=== PATIENT | female | born 1965 | race Caucasian/White ===

== ENCOUNTER → 2019-01-06 | Outpatient (CLI) | payer OTHER ==
[~2019-01-06] MED LIST: AMBIEN 10MG10 MG PO; B-121500 MCG PO; CIPRO 500MG TA500 MG PO; COLACE 100100 MG/CAP PO; CONCERTA27 MG PO; FIORICET 325 MG1 TA1 PO; KLONOPIN 0.5MG0.5 MG PO; NEXIUM 40MG40 MG PO; PERCOCET 325 MG1 TA2 PO; POLYETHYLENE GL; PROZAC 20MG20 MG PO; SEROQUEL 2525 MG/TAB PO; VIIBRYD20 MG PO; VITAMIN D32000 I1 PO; ZOFRAN 4MG T4 MG/TAB PO; ZOVIRAX 200MG200 MG PO
== END ==
LOC: BHSO 13:52
DX: F31.4 Bipolar disorder, current episode depressed, severe, without psychotic features (principal)

== ENCOUNTER → 2019-02-10 | Outpatient (CLI) | payer OTHER | LOC: BHSO 15:53 | DX: F31.81 Bipolar II disorder (principal) | CPT/HCPCS: G0463 ==

== ENCOUNTER → 2019-04-03 | Outpatient (CLI) | payer OTHER | LOC: BHSO 08:42 | DX: F31.81 Bipolar II disorder (principal) | CPT/HCPCS: G0463 ==

== ENCOUNTER → 2019-07-01 | Outpatient (CLI) | payer OTHER | LOC: BHSO 15:57 | DX: F31.81 Bipolar II disorder (principal) | CPT/HCPCS: G0463 ==

== ENCOUNTER → 2019-11-21 | Outpatient (CLI) | payer OTHER | LOC: BHSO 15:32 | DX: F43.10 Post-traumatic stress disorder, unspecified (principal) | CPT/HCPCS: G0463 ==

== ENCOUNTER → 2020-03-05 | Outpatient (CLI) | payer OTHER | LOC: COL.RAD 09:16 | DX: K82.8 Other specified diseases of gallbladder (principal); K52.9 Noninfective gastroenteritis and colitis, unspecified; R19.7 Diarrhea, unspecified | CPT/HCPCS: A9537; J2805 ==

== ENCOUNTER 2020-03-28 18:06 | Observation (INO) | payer OTHER ==
[~2020-03-28] VITALS: Ht 160 cm; Wt 91.4 kg
[2020-03-28 18:14] VITALS: BP 116/63; PULSE 67; TEMP 97.4
[2020-03-28] MEDS ORDERED: ATARAX 10MG10 MG/TAB PO (18:37)
[2020-03-28] MEDS ORDERED: TOPAMAX50 MG PO (18:40)
[2020-03-28] MEDS ORDERED: CYMBALTA 30MG30 MG PO (18:40)
[2020-03-28] MEDS ORDERED: MACRODANTIN100 PO (18:41)
[2020-03-28] MEDS ORDERED: ALDACTONE 25MG25 M1 PO (19:00)
[2020-03-28] MEDS ORDERED: LAMICTAL200 MG PO (19:01)
[2020-03-28] MEDS ORDERED: VALTREX1 GM PO (19:02)
[2020-03-28] MEDS ORDERED: VITAMIN D31000 I1 PO (19:03)
[2020-03-28] MEDS ORDERED: VITAMIN C500 MG PO (19:03)
[2020-03-28] MEDS ORDERED: DULCOLAX TAB5 MG PO (19:05)
--- NOTE | 2020-03-28 19:20 | NUR ---
Assessment complete. Resting in bed, watching television. Ate 75% of full liquid diet. Denies N/V at this time. Reports pain within her tolerable limit.
[2020-03-28 20:02] VITALS: BP 103/59; PULSE 66; TEMP 97.8
[2020-03-29] VITALS (11 sets, daily range): BP systolic 96–154; BP diastolic 49–75; PULSE 55–61; TEMP 97.3–98.1
--- NOTE | 2020-03-29 09:57 | NUR ---
Patient alert and oriented, answers questions appropriately. See assessment. Abdomen soft, non tender, non distended. Bowel sounds hyperactive x4 quads. +Flatus. C/o pain to RUQ, No other c/o at this time..
--- NOTE | 2020-03-29 10:55 | NUR ---
SW met with the patient to discuss discharge plan. The patient lives in [place] with her , Valeriy (ph#[phone]). She reports independence with ADLs and does not have any DME. The patient's PCP is Dr. Marisela Murillo at [facility] and she also receives her medications there. She reports no difficulties obtaining her meds. The patient does not have advanced directives and she was not interested in completing them at this time. The patient plans to return home with her upon discharge. No additional needs at this time.
--- NOTE | 2020-03-29 12:22 | NUR ---
Surgical consent signed.
--- NOTE | 2020-03-29 13:13 | NUR ---
Patient to surgery with surgical staff at this time. Report called to UTILITY WORKER.
[2020-03-29] MEDS ORDERED: NORCO 325 MG-51 TAB PO (14:50)
--- NOTE | 2020-03-29 16:00 | NUR ---
Patient returns from surgery. Assessment unchanged except for abdomen with lap sites x5, edges well approximated, no redness or drainage noted. Bowel sounds hypoactive x4 quads. Post op checks initiated. Post op exercises reviewed.
--- NOTE | 2020-03-29 19:00 | NUR ---
Pt. sitting up in bed at this time. Pt. is A&OX3. Pt. has met discharge criteria. Gave pt. discharge paperwork and reviewed discharge. Pt. voices understanding. Pt. given script and information on follow up appointment. Pt. voices understanding. INT discontinued from rt. wrist. Pt. escorted out by LARRY.
== END 2020-03-29 19:00 | disposition home or self-care (01) ==
LOC: SURG 18:06
PROVIDERS: ADMIT Surgery
DX: K80.11 Calculus of gallbladder with chronic cholecystitis with obstruction (principal); K52.9 Noninfective gastroenteritis and colitis, unspecified; E66.9 Obesity, unspecified; K21.9 Gastro-esophageal reflux disease without esophagitis; K44.9 Diaphragmatic hernia without obstruction or gangrene; G43.909 Migraine, unspecified, not intractable, without status migrainosus; G47.33 Obstructive sleep apnea (adult) (pediatric); F41.9 Anxiety disorder, unspecified; F42.9 Obsessive-compulsive disorder, unspecified; F32.9 Major depressive disorder, single episode, unspecified; Z98.84 Bariatric surgery status; Z88.2 Allergy status to sulfonamides; Z88.8 Allergy status to other drugs, medicaments and biological substances; Z88.1 Allergy status to other antibiotic agents; Z91.040 Latex allergy status; Z79.899 Other long term (current) drug therapy
CPT/HCPCS: G0378; J1170; J2405; J2550; J2704; J3010; J7042

== ENCOUNTER → 2020-04-21 | Outpatient (CLI) | payer OTHER ==
[~2020-04-21] MED LIST changes: +ALDACTONE 25MG25 M1 PO; +ATARAX 10MG10 MG/TAB PO; +CYMBALTA 30MG30 MG PO; +DULCOLAX TAB5 MG PO; +LAMICTAL200 MG PO; +MACRODANTIN100 PO; +NORCO 325 MG-51 TAB PO; +TOPAMAX50 MG PO; +VALTREX1 GM PO; +VITAMIN C500 MG PO; +VITAMIN D31000 I1 PO
== END ==
LOC: BHSO 13:36
DX: F31.81 Bipolar II disorder (principal)
CPT/HCPCS: G0463

== ENCOUNTER → 2020-08-10 | Outpatient (CLI) | payer OTHER | LOC: BHSO 15:19 | DX: F43.10 Post-traumatic stress disorder, unspecified (principal) | CPT/HCPCS: G0463 ==

== ENCOUNTER 2023-10-12 05:11 | Day surgery (SDC) | payer OTHER ==
[~2023-10-12] VITALS: Ht 160 cm; Wt 101.4 kg
[2023-10-12 06:22] VITALS: BP 138/85; PULSE 68; TEMP 97.5
[2023-10-12] MEDS ORDERED: NEURONTIN300 MG/CAP PO (06:41)
[2023-10-12] MEDS ORDERED: ELMIRON 10100 MG/CA1 (06:41)
[2023-10-12] MEDS ORDERED: PHENTERMINE15 MG PO (06:41)
[2023-10-12] MEDS ORDERED: DESYREL 50MG50 MG PO (06:42)
[2023-10-12] MEDS ORDERED: ZOFRAN8 MG PO (06:43)
[2023-10-12 07:35] VITALS: BP 131/64; PULSE 66; TEMP 97.5
[2023-10-12 07:50] VITALS: BP 103/68; PULSE 64
[2023-10-12 08:00] VITALS: BP 123/81; PULSE 60
--- NOTE | 2023-10-12 08:05 | NUR ---
0735 RETURNS TO ROOM 1 PER CART. AWAKE, ALERT. RESP UNLABORED. AMBULATES TO RECLINER WITH STANDBY ASSIST. VITAL SIGN S OBTAINED. DENIES NAUSEA, ABD PAIN OR DYSPHAGIA. CALL LIGHT AT SIDE. IN ROOM 0743 DISCHARE INSTRUCTIONS REVIEWED. PATIENT VERBALIZES UNDERSTANDING. COPY PROVIDED IN DISCHARGE FOLDER 0755 TOLERATES PO WATER WITH OUT NAUSEA. SWALLOWS WITHOUT DIFFICULTY. 0800 DR. GRIJALVA HERE TO VISIT WITH PATIENT 0802 DRESSES SELF
== END 2023-10-12 08:08 | disposition home or self-care (01) ==
LOC: SDCO 05:11
DX: K59.00 Constipation, unspecified (principal); K21.00 Gastro-esophageal reflux disease with esophagitis, without bleeding; K31.89 Other diseases of stomach and duodenum; G47.33 Obstructive sleep apnea (adult) (pediatric); Z98.84 Bariatric surgery status
CPT/HCPCS: J2704; J7120

== ENCOUNTER 2024-04-25 07:41 | Day surgery (SDC) | payer OTHER ==
[~2024-04-25] VITALS: Ht 160 cm; Wt 99.2 kg
[~2024-04-25 07:41] MED LIST changes: +DESYREL 100MG100 MG PO; +ELMIRON 10100 MG/CA1; +LR 1,000 ML IV SCH; +NEURONTIN300 MG/CAP PO; +PHENTERMINE15 MG PO; +ZOFRAN8 MG PO
[2024-04-25] MEDS ORDERED: CYANOCOBAL1000 MCG/1 IM (08:57)
[2024-04-25] MEDS ORDERED: CYMBALTA 60MG60 MG PO (09:00)
[2024-04-25] MEDS ORDERED: GLUCOPHAGE500 MG/TAB PO (09:01)
--- NOTE | 2024-04-25 09:04 | NUR ---
Pt arrived with mother and granddaughter for procedure, VSS and WNL, RR even and unlabored, S1/S1 present, reviewed meds/pharm/allergies/history; consents reviewed and signed, no questions/concerns; 20G IV to RH on 2nd attempt, LR hanging to keep vein open.
[2024-04-25] MEDS ORDERED: fentaNYL 50 MCG/ML 2 ML VIAL ONE ×2 (09:08→11:24)
[2024-04-25] MEDS ORDERED: Rocuronium 50 MG/5 ML Multi-Dose VIAL ONE ×2 (09:09→11:09)
[2024-04-25 09:10] VITALS: BP 134/91; PULSE 65; TEMP 97.8
[2024-04-25] MEDS ORDERED: Glycopyrrolate 0.2 MG/ML 1 ML VIAL ONE (09:10)
[2024-04-25] MEDS ORDERED: Ketorolac 30 MG/ML VIAL ONE (09:10)
[2024-04-25] MEDS ORDERED: dexAMETHasone 10 MG/ML VIAL ONE ×2 (09:10→09:12)
[2024-04-25] MEDS ORDERED: NS 10 ML IV ONE (09:10)
[2024-04-25] MEDS ORDERED: Ondansetron 4 MG/2 ML VIAL ONE (09:10)
[2024-04-25] MEDS ORDERED: Lidocaine PF 2% (20 MG/ML) 5 ML VIAL ONE (09:11)
[2024-04-25] MEDS ORDERED: NS 30 ML IV ONE (09:11)
[2024-04-25] MEDS ORDERED: Morphine 2 MG/1 ML VIAL [PACU/SDC ONLY] IV PRN (10:45)
[2024-04-25] MEDS ORDERED: Ondansetron 4 MG/2 ML VIAL IV PRN ×2 (10:45→12:00)
[2024-04-25] MEDS ORDERED: droPERidol 2.5 MG/ML 2 ML VIAL IV PRN (10:45)
[2024-04-25] MEDS ORDERED: fentaNYL 50 MCG/ML 1 ML SYRINGE/VIAL [PACU/SDC ONLY] IV PRN (10:45)
[2024-04-25] MEDS ORDERED: HYDROmorphone 1 MG/1 ML SYRINGE [PACU/SDC ONLY] IV PRN (10:45)
[2024-04-25] MEDS ORDERED: hydrALAZINE 20 MG/ML 1 ML VIAL IV PRN (10:45)
[2024-04-25] MEDS ORDERED: Ibuprofen 600 MG TAB PO PRN (12:00)
[2024-04-25] MEDS ORDERED: Acetaminophen 325 MG TAB PO PRN (12:00)
[2024-04-25 12:26] VITALS: TEMP 97.2
[2024-04-25 13:10] VITALS: BP 135/66; PULSE 56
--- NOTE | 2024-04-25 13:10 | NUR ---
PATIENT RETURNS TO ROOM 2 PER CART ACCOMPANIED BY JUSTICE CHAMBERS AND RUDDY RN. AROUSES TO VERBAL STIMULI. IVF INFUSING #20G RH. ABDOMINAL BINDER IN PLACE. NO DRAINAGE NOTED FROM INCISIONAL SITES 4 ON ABDOMEN. ON OXYGEN AT 2L PER NC. CALL LIGHT IN REACH AND FAMILY IN ROOM. SIDERAILS UP X2.
[2024-04-25 13:25] VITALS: BP 138/56; PULSE 58
--- NOTE | 2024-04-25 13:25 | NUR ---
CONTINUES TO REST WITHOUT COMPLAINTS OF PAIN OR NAUSEA. IVF INFUSING AND FAMILY REMAINS AT BEDSIDE.
[2024-04-25 13:40] VITALS: BP 134/59; PULSE 61
--- NOTE | 2024-04-25 13:40 | NUR ---
CONTINUES TO REST. MORE AWAKE AND TALKING WITH FAMILY.
--- NOTE | 2024-04-25 13:45 | NUR ---
IV TO INT AND AMBULATES TO THE BATHROOM. GAIT STEADY. REPORT GIVEN TO HEATHER CHAMBERS.
--- NOTE | 2024-04-25 16:39 | NUR ---
1310- PT RETURNS FROM PACU VIA CART TO [facility]. MONITORS ON AND ALARMS SET. CALL LIGHT WITHIN REACH. REPORT RECEIVED FROM REYES FOX. PT RESTING IN BED. 1320- PT FEELING VERY NAUSEAOUS. ALREADY MAXED OUT ON NAUSEA MEDICATION. PLACED COLD RAG ON HEAD, FAN GIVEN, AND HAD HER EAT ICE CHIPS. 1400- PT STILL FEELING NAUSEAOUS. HAVING PT RESTING IN BED. 1430- PT AMBULATED TO BATHROOM. STILL FEELING NAUSEAOUS. 1500- PT RESTING IN BED. TRIED EATING CRACKERS. 1600- DISCHARGE INSTRUCTIONS GIVEN TO PT. ALL QUESTIONS ANSWERED. 1620- PT TRANSFERRED OUT OF THE HOSPITAL VIA WHEELCHAIR TO PRIVATE VEHICLE DRIVEN BY MOM.
== END 2024-04-25 16:20 | disposition home or self-care (01) ==
LOC: SDCO 07:41
DX: K43.0 Incisional hernia with obstruction, without gangrene (principal); E66.01 Morbid (severe) obesity due to excess calories; G47.33 Obstructive sleep apnea (adult) (pediatric); Z68.39 Body mass index [BMI] 39.0-39.9, adult
CPT/HCPCS: C1781; J0690; J1100; J1170; J1790; J1885; J2405; J2704; J2795; J3010; J7120